=== PATIENT | female | born 1995 | race Caucasian/White ===

== ENCOUNTER → 2016-11-19 | Outpatient (CLI) | payer BC ==
[2016-11-19 17:02] LABS: HEMATOCRIT 39.7 % (37.0-47.0); HEMOGLOBIN 12.9 g/dl (12.0-16.0); MEAN CELL VOLUME 88.8 fl (81.0-99.0); MEAN CORPUSCULAR HGB 28.9 pg (27.0-31.0); MEAN CORPUSCULAR HGB CONC 32.5 g/dl (33.0-37.0); MEAN PLATELET VOLUME 9.5 fl (9.6-12.3); RED BLOOD COUNT 4.47 10*6/uL (4.10-5.10); RED CELL DISTRI WIDTH 12.3 % (0-14.5); WHITE BLOOD COUNT 7.9 10*3/uL (4.8-10.8)
[2016-11-19 17:31] LABS: ALBUMIN 3.7 gm/dl (3.1-4.5); ALKALINE PHOSPHATASE 71 U/L (45-117); BILIRUBIN, TOTAL 0.2 mg/dl (0.2-1.0); BUN 11 mg/dl (7-24); CARBON DIOXIDE 29 mmol/L (21-32); CHLORIDE 105 mmol/L (98-107); EST GLOM FILT AFRICAN AMERICAN > 60 ml/min; GLUCOSE 98 mg/dL (65-99); SGOT/AST 16 IU/L (3-35); SGPT/ALT 24 U/L (12-78); SODIUM 143 mmol/L (136-145); TOTAL PROTEIN 8.3 gm/dL (6.4-8.2)
== END | disposition home or self-care (01) ==
LOC: LAB 16:18
PROVIDERS: Family Medicine
DX: Z02.0 Encounter for examination for admission to educational institution (principal)

== ENCOUNTER 2018-10-18 05:58 | Emergency (ER) | payer BC ==
[~2018-10-18] VITALS: Ht 172.7 cm; Wt 90.7 kg
[2018-10-18] MEDS ORDERED: CLINDAMYCIN HC300 MG PO (06:30)
== END 2018-10-18 06:55 | disposition home or self-care (01) ==
LOC: ED 05:58
DX: K02.9 Dental caries, unspecified (principal); F17.200 Nicotine dependence, unspecified, uncomplicated; Z88.0 Allergy status to penicillin

== ENCOUNTER → 2019-07-14 | Outpatient (CLI) | payer BC ==
[~2019-07-14] MED LIST: CLINDAMYCIN HC300 MG PO
== END | disposition home or self-care (01) ==
LOC: RAD 16:06
DX: U07.1 COVID-19 (principal); R91.8 Other nonspecific abnormal finding of lung field

== ENCOUNTER → 2019-07-14 | Outpatient (CLI) | payer BC | END | disposition home or self-care (01) | LOC: COVID19 14:05 | DX: U07.1 COVID-19 (principal); J02.9 Acute pharyngitis, unspecified ==